=== PATIENT | male | born 1980 | race Caucasian/White ===

== ENCOUNTER → 2017-11-20 | Outpatient (CLI) | payer BC ==
[~2017-11-20] MED LIST: AMOXIL500 MG PO; AUGMENTIN 875 M1 TAB PO; BENTYL10 MG PO; CLARITIN10 MG PO; DONNATAL1 CA1 PO; IBU-8800 MG PO; MOTRIN800 MG PO; NKHM; PHENERGAN W/DM120 ML PO; PHENERGAN25 M1 PO; SUDAFED60 MG PO; TRIMOX500 MG PO; ZOFRAN4 MG PO
== END | disposition home or self-care (01) ==
LOC: RAD 11:43
DX: S33.5XXA Sprain of ligaments of lumbar spine, initial encounter (principal); X58.XXXA Exposure to other specified factors, initial encounter; Y92.89 Other specified places as the place of occurrence of the external cause; Y93.89 Activity, other specified; Y99.8 Other external cause status

== ENCOUNTER 2018-02-16 02:30 | Emergency (ER) | payer BC ==
[~2018-02-16] VITALS: Ht 187.9 cm; Wt 113.4 kg
[2018-02-16] MEDS ORDERED: CYCLOBENZAPRINE10 MG PO (02:36)
[2018-02-16] MEDS ORDERED: PANTOPRAZOLE SO40 MG PO (02:36)
[2018-02-16] MEDS ORDERED: NEURONTIN300 MG PO (02:37)
[2018-02-16] MEDS ORDERED: ANAPROX DS550 MG PO (03:07)
== END 2018-02-16 03:26 | disposition home or self-care (01) ==
LOC: ED 02:30
DX: S29.012A Strain of muscle and tendon of back wall of thorax, initial encounter (principal); Z79.899 Other long term (current) drug therapy; X58.XXXA Exposure to other specified factors, initial encounter; Y93.89 Activity, other specified; Y92.69 Other specified industrial and construction area as the place of occurrence of the external cause; Y99.8 Other external cause status

== ENCOUNTER → 2019-10-21 | Outpatient (CLI) | payer BC ==
[~2019-10-21] MED LIST changes: +ANAPROX DS550 MG PO; +CYCLOBENZAPRINE10 MG PO; +NEURONTIN300 MG PO; +PANTOPRAZOLE SO40 MG PO
== END | disposition home or self-care (01) ==
LOC: COVID19 09:50
DX: U07.1 COVID-19 (principal)

== ENCOUNTER → 2021-04-28 | Outpatient (CLI) | payer OTHER | END | disposition home or self-care (01) | LOC: COVID19 15:58 | PROVIDERS: ATTEND Internal Medicine | DX: U07.1 COVID-19 (principal) ==

== ENCOUNTER 2022-08-30 20:19 | Emergency (ER) | payer OTHER ==
[~2022-08-30] VITALS: Ht 190.5 cm; Wt 131.5 kg
== END 2022-08-30 22:51 | disposition home or self-care (01) ==
LOC: ED 20:19
DX: G25.2 Other specified forms of tremor (principal); H91.92 Unspecified hearing loss, left ear; Z88.8 Allergy status to other drugs, medicaments and biological substances